=== PATIENT | male | born 1970 | race Caucasian/White ===

== ENCOUNTER 2017-04-07 09:08 | Emergency (ER) | payer BC ==
[~2017-04-07] VITALS: Ht 180.3 cm; Wt 81.6 kg
--- NOTE | ~2017-04-07 | US115 ---
[facility] A Service of [facility] RADIOLOGY TEXT RESULTS PATIENT: APOLINAR JACK LOCATION: [facility] : 74 UNIT #: [id number] AGE: [address]: Gregory Truong MD SEX: M ORDER DR: [id number] [facility] [address] [place], [place] [address] [id number] MR#: [id number] Acc #: [id number] NAME: APOLINAR JACK. : 1970 SEX: M STUDY DATE/TIME: 04/07/2017 10:37 UNIT: [facility] ROOM: STUDY DESCRIPTION: US Scrotum and Contents Attending Physician: Gregory Truong M.D. Ordering Physician: Gregory Truong M.D. Primary Care Physician: Generic Doctor Not In System MEDICAL IMAGING REPORT This report is preliminary unless electronic signature is present EXAM Scrotal ultrasound 04/07/2019 INDICATIONS Intermittent right testicular pain over the last month. FINDINGS Sanchez-scale, color flow, and spectral Doppler waveform analysis was performed of the scrotum and contents. No comparison. The right testicle is morphologically normal. No intratesticular mass is seen. There is normal perfusion by Doppler. Left testicle is atrophic. Patient does give a remote history of testicular trauma. There is a right varicocele. Trace amount of right hydrocele is noted. Right epididymis is normal. IMPRESSION 1. Normal right testicle. Atrophic left testicle. 2. A small right varicocele. 3. Small right hydrocele. Dictated by... Gregory Braxton Jr., M.D. THIS IS AN ELECTRONICALLY VERIFIED REPORT Gregory Braxton Jr., M.D. at 04/08/2017 2:18 PM IAN/gab TD: 04/07/2017 16:03 JOB #: [id number] MEDICAL IMAGING REPORT Page 1 of 1 COPY
[~2017-04-07 09:08] MED LIST: AMITRYPTYLINE PO; BUSPIRONE HCL7.5 MG PO; CYMBALTA PO; INDERAL20 MG PO; KLONOPIN PO; WELLBUTRIN XL PO; ZYRTEC PO
[2017-04-07 09:55] LABS: URINE SOURCE CLEAN CATCH
[2017-04-07 10:01] LABS: URINE APPEARANCE CLEAR; URINE BILIRUBIN NEG (NEG); URINE BLOOD NEG (NEG); URINE COLOR YELLOW; URINE GLUCOSE NEG (NEG); URINE KETONE NEG (NEG); URINE LEUKOCYTE ESTERASE NEG (NEG); URINE NITRATE NEG (NEG); URINE PROTEIN NEG (NEG); URINE SPECIFIC GRAVITY 1.011 (1.003-1.035); URINE UROBILINOGEN 0.2 MG/DL (NEG)
== END 2017-04-07 11:59 | disposition home or self-care (01) ==
LOC: CED 09:08
PROVIDERS: Emergency Medicine
DX: N45.1 Epididymitis (principal)
CPT/HCPCS: 76870; 81003; 93976; 99284